=== PATIENT | female | born 1955 | race Caucasian/White ===

== ENCOUNTER 2023-07-13 07:30 | Observation (INO) ==
[2023-07-13] MEDS: NOZIN NASAL SANITIZER TP ONE (12:46)
[2023-07-13] MEDS: DUONEB 0.5 MG/3 MG (3 mL) NEB ONE (13:05)
[2023-07-13] MEDS: LR 1,000 ML IV 1,000 ML IV ONE ×2 (13:45→17:11)
[2023-07-13] MEDS: NS 100 ML IV 100 ML ONE (15:17)
[2023-07-13] MEDS: ANCEF VIAL 1 GRAM ONE (15:17)
[2023-07-13] MEDS: ZOFRAN INJ 4 MG VIAL ONE (15:19)
[2023-07-13] MEDS: BRIDION ONE (15:19)
[2023-07-13] MEDS: VERSED ONE (15:19)
[2023-07-13] MEDS ORDERED: SUPRANE ONE (15:19)
[2023-07-13] MEDS: DIPRIVAN VIAL 20 ML ONE (15:19)
[2023-07-13] MEDS: ZEMURON 100 MG VIAL ONE (15:19)
[2023-07-13] MEDS: FENTANYL VIAL INJ 100 mcg ONE ×3 (15:19→16:26)
[2023-07-13] MEDS: MARCAINE 0.25% INJ ONE (15:47)
[2023-07-13] MEDS ORDERED: REGLAN INJ 10 MG VIAL IVP PRN (16:10)
[2023-07-13] MEDS ORDERED: BENADRYL INJ 50 MG VIAL IVP PRN (16:10)
[2023-07-13] MEDS ORDERED: BARHEMSYS INJ IVP PRN (16:10)
[2023-07-13] MEDS ORDERED: ZOFRAN INJ 4 MG VIAL IVP PRN ×2 (16:10→19:02)
[2023-07-13] MEDS: SUPRANE ONE (17:11)
[2023-07-13] MEDS: OFIRMEV IV 1000 MG VIAL 1,000 MG/100 ML VIAL IV ONE (17:53)
[2023-07-13] MEDS: TORADOL 30 MG VIAL ONE (17:55)
[2023-07-13] MEDS ORDERED: TYLENOL 325 MG TAB PO PRN (19:02)
[2023-07-13] MEDS ORDERED: DILAUDID INJ IVP PRN (19:06)
[2023-07-13] MEDS: DILAUDID INJ IVP PRN (19:19)
[2023-07-13] MEDS: NS 1,000 ML IV 1,000 ML IV SCH (20:43)
[2023-07-13] MEDS: COLACE CAP 100 MG PO SCH (21:42)
[2023-07-13] MEDS: NORCO 5/325 MG TAB PO PRN (23:53)
[2023-07-14 05:44] LABS: BLOOD UREA NITROGEN 12 mg/dL (7-18); CALCIUM 7.9 mg/dL (8.5-10.1); CARBON DIOXIDE 33.4 mmol/L (21-32); CHLORIDE 104 mmol/L (98-107); COR NA(FOR HYPERGLY) 143 mmol/L (136-145); CREATININE 0.86 mg/dL (0.55-1.02); GLUCOSE 184 mg/dL (65-99); POTASSIUM 4.7 mmol/L (3.5-5.1); SODIUM 141 mmol/L (136-145); eGFR NON BLACK RACES > 60 (>60)
[2023-07-14] MEDS: DILAUDID INJ ONE (05:53)
--- NOTE | 2023-07-14 08:56 | NOTE.SOAP ---
Soap Note Note for Day of Date of Exam: 07/14/23 Subjective Data Subjective Data: Patient seen bedside. doing ok. having nausea. pain controleld with oral meds. no acute issues. frame stable with very little strikethrough. Objective Data Objective Data: ex fix stable. no loosening. toes with CFT instant. no hematoma or active bleeding. she has motor to toes. Assessment Assessment: 68 F POV #1 from [facility] with ex fix application. foot stable. ok for up to 50% WB for transfers. she did when we were leaving to bedside commode and did very well. she will likely be D/Isaias to home. she has appliances she needs. she does not need dressing changes at home. I changed today and put clean dry dressing on. we discussed sponges and shoe for bottom of foot. rxs in chart and doing good with hydrocodone and will use lovenox and zofran on discharge.
[2023-07-14] MEDS ORDERED: PATIENT'S HOME MEDICATION (Aspirin 81 mg Tablet) PO SCH (09:00)
[2023-07-14] MEDS: ASPIRIN 81 MG CHEWTAB PO SCH (09:52)
[2023-07-14] MEDS: COZAAR PO SCH (09:52)
[2023-07-14] MEDS: LOVENOX INJ 40 MG SYR SC SCH (09:52)
[2023-07-14 10:16] VITALS: BP 153/68; PULSE 86; O2SAT 98
[2023-07-14 10:17] VITALS: TEMP 98.4
[2023-07-14 11:12] VITALS: RESP 20
== END 2023-07-14 11:30 | disposition home or self-care (01) ==
LOC: ICU → EDUNIT# 07:30
PROVIDERS: ADMIT Obstetrics & Gynecology Obstetrics; ATTEND Obstetrics & Gynecology Obstetrics
PROC: APEXFIX (2023-07-13 16:15)
DX: M24.572 Contracture, left ankle; M12.572 Traumatic arthropathy, left ankle and foot; M14.672 Charcot's joint, left ankle and foot; M96.0 Pseudarthrosis after fusion or arthrodesis; S92.312D Displaced fracture of first metatarsal bone, left foot, subsequent encounter for fracture with routine healing; X58.XXXD Exposure to other specified factors, subsequent encounter; I10 Essential (primary) hypertension